=== PATIENT | male | born 1975 | race Caucasian/White ===

== ENCOUNTER 2021-08-17 14:41 | Emergency (ER) | payer MEDICARE ==
[~2021-08-17 14:41] MED LIST: AUGMENTIN 875-1 EACH PO; CARDIZEM 60MG T60 MG PO; ECOTRIN81 MG PO; LIPITOR TAB 1010 MG PO; LOPRESSOR100 MG PO; METOPROLOL SUC100 MG PO; NOVOLOG100 UNIT/1 IL; OMEPRAZOLE20 MG PO; PERCOCET 5/325 T1 EA PO; TOPAMAX50 MG PO; hydralazine
[2021-08-17 15:41] LABS: HEMOGLOBIN 10.3 gm/dl (14.0-17.5); RED BLOOD COUNT 3.19 M/UL (4.20-5.50); WHITE BLOOD COUNT 16.9 K/UL (4.5-11.0)
[2021-08-17] MEDS ORDERED: CLINDAMYCIN HC300 MG PO (17:02)
== END 2021-08-17 18:12 | disposition home or self-care (01) ==
LOC: ER1 14:41
PROVIDERS: Nurse Practitioner
DX: L02.211 Cutaneous abscess of abdominal wall (principal); E11.9 Type 2 diabetes mellitus without complications; I10 Essential (primary) hypertension; Z90.49 Acquired absence of other specified parts of digestive tract; Z88.1 Allergy status to other antibiotic agents; Z88.5 Allergy status to narcotic agent; Z88.8 Allergy status to other drugs, medicaments and biological substances
CPT/HCPCS: 80053; 83605; 85025; 85610; 85730; 87040; 87070; 87077; 87186; 87205; 96374; 99283

== ENCOUNTER 2022-02-17 21:27 | Inpatient (IN) | payer MEDICARE ==
[~2022-02-17] VITALS: Ht 188 cm; Wt 83.9 kg
[~2022-02-17 21:27] MED LIST changes: +CLINDAMYCIN HC300 MG PO
[2022-02-17 22:42] LABS: RED BLOOD COUNT 3.46 M/UL (4.20-5.50)
[2022-02-18] MEDS ORDERED: HYDRALAZINE HCL25 MG PO (05:59)
[2022-02-20 08:35] LABS: HEMOGLOBIN 10.6 gm/dl (14.0-17.5); RED BLOOD COUNT 3.39 M/UL (4.20-5.50)
[2022-02-20 08:43] LABS: WHITE BLOOD COUNT 8.8 K/UL (4.5-11.0)
[2022-02-20] MEDS ORDERED: NITROGLYCERIN0.4 MG SL (11:18)
[2022-02-20] MEDS ORDERED: BRILINTA 90 MG90 MG PO (11:18)
[2022-02-20] MEDS ORDERED: HYDRALAZINE HCL25 MG PO (11:18)
[2022-02-21 11:19] LABS: HBSAG SCREEN Negative (Negative); HCV AB <0.1 (0.0-0.9); HEP A AB, IGM Negative (Negative); HEP B CORE AB, IGM Negative (Negative)
== END 2022-02-20 18:45 | disposition home or self-care (01) | DRG 246 ==
LOC: ER1 21:27 → CCU 02-18 → CDU 02-18 → CCU 02-18 04:56 → PROG CARE 02-19 11:58
PROVIDERS: Family Medicine; Internal Medicine; Internal Medicine Interventional Cardiology; Internal Medicine Nephrology; ADMIT Internal Medicine
PROC: B24BZZZ Ultrasonography of Heart with Aorta (ICD-10-PCS; principal; 2022-02-19)
PROC: 027034Z Dilation of Coronary Artery, One Artery with Drug-eluting Intraluminal Device, Percutaneous Approach (ICD-10-PCS; 2022-02-19)
PROC: 4A033BC Measurement of Arterial Pressure, Coronary, Percutaneous Approach (ICD-10-PCS; 2022-02-19)
DX: I25.110 Atherosclerotic heart disease of native coronary artery with unstable angina pectoris (principal); N18.6 End stage renal disease; I13.2 Hypertensive heart and chronic kidney disease with heart failure and with stage 5 chronic kidney disease, or end stage renal disease; E10.40 Type 1 diabetes mellitus with diabetic neuropathy, unspecified; Z20.822 Contact with and (suspected) exposure to COVID-19; D63.1 Anemia in chronic kidney disease; I08.3 Combined rheumatic disorders of mitral, aortic and tricuspid valves; I27.20 Pulmonary hypertension, unspecified; I25.10 Atherosclerotic heart disease of native coronary artery without angina pectoris; F41.9 Anxiety disorder, unspecified; I50.9 Heart failure, unspecified; I16.0 Hypertensive urgency; Z96.41 Presence of insulin pump (external) (internal); I95.1 Orthostatic hypotension; E10.22 Type 1 diabetes mellitus with diabetic chronic kidney disease; Z99.2 Dependence on renal dialysis; I25.2 Old myocardial infarction; Z90.49 Acquired absence of other specified parts of digestive tract; Z98.890 Other specified postprocedural states; Z88.1 Allergy status to other antibiotic agents; Z88.5 Allergy status to narcotic agent; Z88.8 Allergy status to other drugs, medicaments and biological substances; Z82.49 Family history of ischemic heart disease and other diseases of the circulatory system; Z79.4 Long term (current) use of insulin
CPT/HCPCS: ECHO; 36415; 71045; 78452; 80053; 80074; 82550; 82553; 82962; 84484; 85025; 85027; 85347; 90937; 93005; 93017; 93306; 93571; 96372; 96374; 96375; 96376; 97116; 97161; 99152; 99153; 99285; A9502; C1725; C1769; C1874; C1887; C1894; C9600; G0378; J0153; J0360; J1644; J2250; J2270; J2405; J2785; J3010; J3246; J7040; Q9965; U0002

== ENCOUNTER 2022-02-22 23:58 | Observation (INO) | payer MEDICARE ==
[~2022-02-22] VITALS: Ht 188 cm; Wt 82.6 kg
[~2022-02-22 23:58] MED LIST changes: +BRILINTA 90 MG90 MG PO; +HYDRALAZINE HCL25 MG PO; +NITROGLYCERIN0.4 MG SL
[2022-02-23 01:01] LABS: HEMOGLOBIN 11.4 gm/dl (14.0-17.5); RED BLOOD COUNT 3.58 M/UL (4.20-5.50); WHITE BLOOD COUNT 8.9 K/UL (4.5-11.0)
[2022-02-23 06:48] LABS: HEMOGLOBIN 10.2 gm/dl (14.0-17.5); RED BLOOD COUNT 3.28 M/UL (4.20-5.50); WHITE BLOOD COUNT 8.2 K/UL (4.5-11.0)
[2022-02-23] MEDS ORDERED: HYDRALAZINE HCL25 MG PO (09:49)
[2022-02-23] MEDS ORDERED: BRILINTA90 MG PO (09:50)
[2022-02-23] MEDS ORDERED: HYDROXYZINE HCL25 MG PO (09:52)
[2022-02-23] MEDS ORDERED: NITROGLYCERIN0.4 MG SL (10:56)
[2022-02-23] MEDS ORDERED: METOPROLOL SUC100 MG PO (10:57)
[2022-02-23 19:23] LABS: RED BLOOD COUNT 3.15 M/UL (4.20-5.50)
[2022-02-23 19:26] LABS: WHITE BLOOD COUNT 10.8 K/UL (4.5-11.0)
[2022-02-24 03:21] LABS: RED BLOOD COUNT 3.21 M/UL (4.20-5.50); WHITE BLOOD COUNT 9.3 K/UL (4.5-11.0)
[2022-02-25 02:26] LABS: HEMOGLOBIN 10.3 gm/dl (14.0-17.5); RED BLOOD COUNT 3.3 M/UL (4.20-5.50)
[2022-02-25 02:54] LABS: WHITE BLOOD COUNT 12.1 K/UL (4.5-11.0)
[2022-02-25] MEDS ORDERED: ACETAMINOPHEN-1 EAC1 PO (10:52)
[2022-02-25] MEDS ORDERED: PHENERGAN 12.12.5 M1 PO (10:58)
== END 2022-02-25 12:12 | disposition home or self-care (01) ==
LOC: ER1 23:58 → CDU 02-23 03:58 → MED SURG 4 02-23 03:58 → PROG CARE 02-23 11:39
PROVIDERS: Internal Medicine; Internal Medicine Interventional Cardiology; Student in an Organized Health Care Education/Training Program; ADMIT Internal Medicine
PROC: 02703DZ Dilation of Coronary Artery, One Artery with Intraluminal Device, Percutaneous Approach (ICD-10-PCS; principal; 2022-02-23)
PROC: 4A023N7 Measurement of Cardiac Sampling and Pressure, Left Heart, Percutaneous Approach (ICD-10-PCS; 2022-02-23)
PROC: B2111ZZ Fluoroscopy of Multiple Coronary Arteries using Low Osmolar Contrast (ICD-10-PCS; 2022-02-23)
DX: R07.89 Other chest pain (principal); S30.1XXA Contusion of abdominal wall, initial encounter; I12.0 Hypertensive chronic kidney disease with stage 5 chronic kidney disease or end stage renal disease; E10.22 Type 1 diabetes mellitus with diabetic chronic kidney disease; N18.6 End stage renal disease; D63.1 Anemia in chronic kidney disease; E10.65 Type 1 diabetes mellitus with hyperglycemia; E87.5 Hyperkalemia; J90 Pleural effusion, not elsewhere classified; E10.40 Type 1 diabetes mellitus with diabetic neuropathy, unspecified; E10.319 Type 1 diabetes mellitus with unspecified diabetic retinopathy without macular edema; R11.0 Nausea; R77.8 Other specified abnormalities of plasma proteins; I25.10 Atherosclerotic heart disease of native coronary artery without angina pectoris; E78.5 Hyperlipidemia, unspecified; F17.210 Nicotine dependence, cigarettes, uncomplicated; Z88.1 Allergy status to other antibiotic agents; Z88.5 Allergy status to narcotic agent; Z88.6 Allergy status to analgesic agent; Z88.8 Allergy status to other drugs, medicaments and biological substances; Z99.2 Dependence on renal dialysis; Z91.14 Patient's other noncompliance with medication regimen; Z79.82 Long term (current) use of aspirin; Z79.899 Other long term (current) drug therapy; Z95.5 Presence of coronary angioplasty implant and graft; X58.XXXA Exposure to other specified factors, initial encounter
CPT/HCPCS: 36415; 71045; 80048; 80053; 82550; 82553; 82962; 83735; 84484; 85014; 85018; 85025; 85027; 90937; 93005; 96374; 99152; 99153; 99285; C1725; C1769; C1874; C1887; C9600; G0378; J0583; J1644; J2250; J2270; J2405; J3010; J7040; Q9965

== ENCOUNTER 2022-03-15 14:06 | Observation (INO) | payer MEDICARE ==
[~2022-03-15] VITALS: Ht 188 cm; Wt 79.4 kg
[~2022-03-15 14:06] MED LIST changes: +ACETAMINOPHEN-1 EAC1 PO; +BRILINTA90 MG PO; +HYDROXYZINE HCL25 MG PO; +LANTUS INS100 UTS/M1 SC; +PHENERGAN 12.12.5 M1 PO; +ZOFRAN ODT 4 MG4 MG PO
[2022-03-15 14:41] LABS: HEMOGLOBIN 10.7 gm/dl (14.0-17.5); RED BLOOD COUNT 3.39 M/UL (4.20-5.50); WHITE BLOOD COUNT 10.3 K/UL (4.5-11.0)
[2022-03-16 03:20] LABS: HEMOGLOBIN 10.3 gm/dl (14.0-17.5); RED BLOOD COUNT 3.31 M/UL (4.20-5.50); WHITE BLOOD COUNT 9.4 K/UL (4.5-11.0)
[2022-03-17 06:17] LABS: HEMOGLOBIN 10.5 gm/dl (14.0-17.5); RED BLOOD COUNT 3.31 M/UL (4.20-5.50); WHITE BLOOD COUNT 9.9 K/UL (4.5-11.0)
== END 2022-03-17 15:15 | disposition home or self-care (01) ==
LOC: ER1 14:06 → CDU 17:14 → MED SURG 4 17:14 → CDU 22:29 → MED SURG 4 23:01
PROVIDERS: ADMIT Internal Medicine
DX: R07.89 Other chest pain (principal); E10.22 Type 1 diabetes mellitus with diabetic chronic kidney disease; I12.0 Hypertensive chronic kidney disease with stage 5 chronic kidney disease or end stage renal disease; N18.6 End stage renal disease; I25.10 Atherosclerotic heart disease of native coronary artery without angina pectoris; Z99.2 Dependence on renal dialysis; E10.40 Type 1 diabetes mellitus with diabetic neuropathy, unspecified; E10.319 Type 1 diabetes mellitus with unspecified diabetic retinopathy without macular edema; E78.5 Hyperlipidemia, unspecified; D63.1 Anemia in chronic kidney disease; Z79.4 Long term (current) use of insulin; Z79.82 Long term (current) use of aspirin; Z79.899 Other long term (current) drug therapy; Z88.1 Allergy status to other antibiotic agents; Z88.8 Allergy status to other drugs, medicaments and biological substances; Z95.5 Presence of coronary angioplasty implant and graft
CPT/HCPCS: 36415; 71045; 80048; 80053; 80061; 82550; 82553; 82962; 83735; 84439; 84443; 84484; 85025; 85610; 90937; 93005; 96374; 96375; 96376; 99285; G0378; J1170; J2405

== ENCOUNTER 2022-03-24 13:30 | Emergency (ER) | payer MEDICARE ==
[2022-03-24 14:22] LABS: HEMOGLOBIN 10.9 gm/dl (14.0-17.5); RED BLOOD COUNT 3.48 M/UL (4.20-5.50); WHITE BLOOD COUNT 8.2 K/UL (4.5-11.0)
[2022-03-24] MEDS ORDERED: PLAVIX 75 MG TA75 MG PO (15:14)
== END 2022-03-24 15:37 | disposition home or self-care (01) ==
LOC: ER1 13:30
PROVIDERS: Nurse Practitioner
DX: D69.2 Other nonthrombocytopenic purpura (principal); Z88.8 Allergy status to other drugs, medicaments and biological substances; Z51.81 Encounter for therapeutic drug level monitoring
CPT/HCPCS: 80053; 85025; 85610; 85730; 96374; 99283; J1200